=== PATIENT | male | born 1970 | race Caucasian/White ===

== ENCOUNTER 2020-04-08 10:37 | Outpatient (CLI) | payer OTHER, SELFPAY ==
--- NOTE | ~2020-04-08 | XR_ITS ---
EXAMINATION: XR elbow LT 2V DATE: 04/08/2020 10:59 INDICATION: Left elbow pain. TECHNIQUE: 2 views of left elbow were obtained. COMPARISON: None. FINDINGS: Bone alignment is normal. No fracture. Joint spaces are well maintained. There is an enthes ophyte at olecranon. There is an enthesophyte at lateral humeral epicondyle. There is no elbow joint effusion. IMPRESSION: 1. No specific etiology for the patient's symptoms. Reviewed, dictated and finalized at location B.
== END 2020-04-08 10:38 | disposition home or self-care (01) ==
LOC: ANHIMG 10:41
PROVIDERS: PCP Family Medicine; Visit Provider Physician Assistant Medical
DX: M25.522 Pain in left elbow (principal)
CPT/HCPCS: 73070

== ENCOUNTER 2020-06-06 13:09 | Outpatient (CLI) | payer OTHER, SELFPAY ==
--- NOTE | 2020-06-06 15:00 | NEURO_ITS ---
Patient Number: [id number] Impression: # Complains of numbness of hands. # Mild bilateral Carpal Tunnel Syndrome. # No ulnar neuropathy. # Normal needle/EMG exam. # Clinical correlation recommended. Nerve Conduction Studies Anti Sensory Summary Table Stim Site NR Peak (ms) P-T Amp (?V) Site1 Site2 Delta-P (ms) Dist (cm) Delfin (m/s) Left Median Anti Sensory (2-3nd Digit) Wrist 3.4 25.0 Wrist 2-3nd Digit 3.4 14.0 41 Wrist 3.5 60.7 Wrist 2-3nd Digit 3.4 14.0 41 Right Median Anti Sensory (2-3nd Digit) Wrist 4.2 21.9 Wrist 2-3nd Digit 4.2 14.0 33 Wrist 4.5 23.8 Wrist 2-3nd Digit 4.2 14.0 33 Left Radial Anti Sensory (Base 1st Digit) Wrist 2.1 26.8 Wrist Base 1st Digit 2.1 0.0 Right Radial Anti Sensory (Base 1st Digit) Wrist 2.3 13.7 Wrist Base 1st Digit 2.3 0.0 Left Ulnar Anti Sensory (5th Digit) Wrist 2.5 44.0 Wrist 5th Digit 2.5 14.0 56 Right Ulnar Anti Sensory (5th Digit) Wrist 2.8 14.2 Wrist 5th Digit 2.8 14.0 50 Motor Summary Table Stim Site NR Onset (ms) O-P Amp (mV) Site1 Site2 Delta-0 (ms) Dist (cm) Delfin (m/s) Left Median Motor (Abd Poll Brev) Wrist 4.2 1.9 Elbow Wrist 5.4 30.0 56 Elbow 9.6 2.0 Right Median Motor (Abd Poll Brev) Wrist 3.9 3.1 Elbow Wrist 5.0 29.0 58 Elbow 8.9 2.9 Left Ulnar Motor (Abd Dig Minimi) Wrist 2.7 6.6 A Elbow Wrist 5.8 33.0 57 A Elbow 8.5 5.7 Right Ulnar Motor (Abd Dig Minimi) Wrist 2.5 6.2 A Elbow Wrist 5.1 29.0 57 A Elbow 7.6 5.9 F Wave Studies NR F-Lat (ms) L-R F-Lat (ms) Left Median (Mrkrs) (Abd Poll Brev) 28.75 0.12 Right Median (Mrkrs) (Abd Poll Brev) 28.87 0.12 Left Ulnar (Mrkrs) (Abd Dig Min) 28.95 1.06 Right Ulnar (Mrkrs) (Abd Dig Min) 27.89 1.06 EMG Side Muscle Nerve Root Ins Act Fibs Amp Dur Recrt Comment Right 1stDorInt Ulnar C8-T1 Nml Nml Nml Nml Nml Right Ext Indicis Radial (Post Int) C7-8 Nml Nml Nml Nml Nml Right Ext Digitorum Radial (Post Int) C7-8 Nml Nml Nml Nml Nml Right BrachioRad Radial C5-6 Nml Nml Nml Nml Nml Right PronatorTeres Median C6-7 Nml Nml Nml Nml Nml Right Abd Poll Brev Median C8-T1 Nml Nml Nml Nml Nml Left 1stDorInt Ulnar C8-T1 Nml Nml Nml Nml Nml Left Ext Indicis Radial (Post Int) C7-8 Nml Nml Nml Nml Nml Left Ext Digitorum Radial (Post Int) C7-8 Nml Nml Nml Nml Nml Left BrachioRad Radial C5-6 Nml Nml Nml Nml Nml Left PronatorTeres Median C6-7 Nml Nml Nml Nml Nml Left Abd Poll Brev Median C8-T1 Nml Nml Nml Nml Nml Right ABD Dig Min Ulnar C8-T1 Nml Nml Nml Nml Nml Left ABD Dig Min Ulnar C8-T1 Nml Nml Nml Nml Nml Right Anconeus Radial C7-8 Nml Nml Nml Nml Nml Right Brachialis Musculocut C5-6 Nml Nml Nml Nml Nml Left Anconeus Radial C7-8 Nml Nml Nml Nml Nml Left Brachialis Musculocut C5-6 Nml Nml Nml Nml Nml MTDD
== END 2020-06-06 13:10 | disposition home or self-care (01) ==
PROVIDERS: PCP Family Medicine; Visit Provider Physician Assistant Medical
DX: R20.2 Paresthesia of skin (principal); G56.03 Carpal tunnel syndrome, bilateral upper limbs
CPT/HCPCS: 95886; 95911

== ENCOUNTER → 2021-09-23 14:45 | Outpatient (CLI) | payer OTHER, SELFPAY ==
--- NOTE | ~2021-09-23 | XR_ITS ---
XR lumbar spine 2-3V DATE: 09/23/2021 15:23 INDICATION: Low back pain TECHNIQUE: AP, lateral, coned lateral lumbosacral views COMPARISON: None FINDINGS: There is mild degenerative spurring of the lower thoracic spine. There is mildly severe degenerative disc disease at L1-2 and L2-3, moderate degenerative disc disease at L3-4. There is mild degenerative disc disease at L4-5. The included lower thoracic and lumbar pedicles are intact. There is slight levoscoliosis of the lowe r thoracic and lumbar spine. No fracture or bone destruction or spondylolisthesis is detected. The sacroiliac joints are intact. IMPRESSION: Multilevel degenerative disc disease, most pronounced at L1-2 and L2-3 Reviewed, dictated and finalized at location A. [employer] RE[employer] IMPRESSION: Multilevel degenerative disc disease, most pronounced at L1-2 and L 2-3
== END ==
PROVIDERS: Visit Provider Chiropractor
DX: M51.36 Other intervertebral disc degeneration, lumbar region (principal)
CPT/HCPCS: 72100

== ENCOUNTER 2024-09-19 10:18 | Outpatient (CLI) | payer OTHER, SELFPAY ==
--- NOTE | ~2024-09-19 | XR_ITS ---
EXAMINATION: XR lumbar spine 2-3V DATE: 09/19/2024 10:33 INDICATION: Dorsalgia, unspecified. TECHNIQUE: 3 views of lumbar spine were obtained. COMPARISON: Lumbar spine radiographs 09/23/2021 FINDINGS: There is 3 degrees levocurvature of thoracolumbar spine. There is 3 mm retrolisthesis of L2 on L3 and L3 on L4. There is mild chronic anterior wedging of T12, L1, and L2. There is mildly decre ased disc height at T12-L1, moderately decreased disc height at L1-L2 and L2-L3, and mildly decreased disc height from L3-L4 through L5-S1. There is multilevel severe facet joint osteoarthritis. IMPRESSION: 1. Moderate lumbar spondylosis. Reviewed, dictated and finalized at location A. [employer]COPE TESTER
== END 2024-09-19 10:19 | disposition home or self-care (01) ==
PROVIDERS: PCP Family Medicine
DX: M43.06 Spondylolysis, lumbar region (principal)
CPT/HCPCS: 72100

== ENCOUNTER 2025-03-29 10:48 | Outpatient (CLI) | payer OTHER, SELFPAY ==
--- NOTE | ~2025-03-29 | XR_ITS ---
XR lumbar spine 2-3V 03/29/2025 11:29 Indication: Spondylolisthesis Procedure: 3 views lumbar spine Comparison: 09/19/2024 Findings: There is significant disc narrowing at all lumbar levels. There is moderate-severe multilev el facet hypertrophy. No fracture, subluxation or dislocation. No alteration of alignment with flexio n/extension. No acute fracture or traumatic malalignment. Impression: 1: Severe lumbar spondylosis. Reviewed, dictated and finalized at location A. Impression: 1: Severe lumbar spondylosis.
== END 2025-03-29 10:49 | disposition home or self-care (01) ==
LOC: MICIMG 10:50
PROVIDERS: PCP Family Medicine; Visit Provider Physician Assistant
DX: M43.10 Spondylolisthesis, site unspecified (principal); M47.896 Other spondylosis, lumbar region
CPT/HCPCS: 72100